=== PATIENT | male | born 1950 ===

== ENCOUNTER 2021-07-17 12:32 | Inpatient (IN) | payer OTHER ==
[2021-07-17 12:51] VITALS: BMI 27.2
[2021-07-17] MEDS ORDERED: ACETAMINOPHEN 1000 MG/100 ML BAG IVPB ONE (12:55)
[2021-07-17] MEDS ORDERED: SODIUM CHLORIDE 0.9% 500 ML INFUS.BAG IV ONE (12:55)
[2021-07-17 15:07] LABS: INR 1.3 (0.83-1.09)
[2021-07-17 15:10] LABS: ACTIVATED PTT 31.5 SECONDS (25.2-36.5)
[2021-07-17 15:10] LABS: EPI CELLS 8 /uL (0-25.1); HYALINE CASTS 5 /uL (0-3.1); URINE APPEARANCE CLEAR; URINE BILIRUBIN 2+ (NEGATIVE); URINE COLOR ORANGE; URINE GLUCOSE (UA) NEGATIVE (NEGATIVE); URINE KETONE NEGATIVE (NEGATIVE); URINE LEUK ESTERASE 2+ (NEGATIVE); URINE NITRITE POSITIVE (NEGATIVE); URINE PROTEIN TRACE (NEGATIVE); URINE RBC 49 /uL (0-23.9); URINE WBC 9 /uL (0-25.8)
[2021-07-17 15:26] LABS: CHLORIDE 103 mmol/L (98-107); LACTIC ACID 7.1 mmol/L (0.4-2.0); SODIUM 138 mmol/L (136-145)
[2021-07-17 15:28] LABS: ALBUMIN 3.5 g/dl (3.4-5.0); ANION GAP 12 MMOL/L (8-16); BLOOD UREA NITROGEN 24.5 mg/dL (7-18); CALCIUM 9.4 mg/dL (8.5-10.1); CO2 23 mmol/L (21-32); GLUCOSE,RANDOM 177 mg/dL (74-106)
[2021-07-17 15:31] LABS: SGPT/ALT 38 U/L (13-61)
[2021-07-17] MEDS ORDERED: CEFTRIAXONE 1,000 MG in DEXTROSE 5%-WATER - 50 ML IVPB ONE (15:31)
[2021-07-17 15:32] LABS: BASO % 0.3 % (0-2.0); CREATININE 1.5 mg/dL (0.55-1.3); HEMATOCRIT 53.9 % (35.4-49); HEMOGLOBIN 16.9 GM/dL (11.7-16.9); MCH 27.5 pg (25.7-33.7); MCHC 31.3 g/dl (32.0-35.9); MEAN CELL VOLUME 87.8 fl (80-96); MEAN PLT VOLUME 10.4 fl (7.5-11.1); MONO % 14.2 % (3.8-10.2); NEUT % 82.5 % (42.8-82.8); PLATELET COUNT 161 10^3/uL (134-434); RBC 6.13 M/mm3 (4.00-5.60); RDW 15.1 % (11.9-15.9); SGOT/AST 29 U/L (15-37); WHITE BLOOD COUNT 12.8 K/mm3 (4.0-10.0)
[2021-07-17 15:33] LABS: BILIRUBIN,TOTAL 1.4 mg/dL (0.2-1); TOT PROT 7.4 g/dl (6.4-8.2)
[2021-07-17 15:34] LABS: ALK PHOS 144 U/L (45-117)
[2021-07-17 15:37] LABS: N-TERMINAL BNP 466.6 pg/ml (5-125)
[2021-07-17 15:43] LABS: VENOUS BASE EXCESS -8.7 mmol/L (-2-2); VENOUS O2 SATURATION 67.1 % (70-80); VENOUS PCO2 56.1 mmHg (38-52)
[2021-07-17 15:45] LABS: VENOUS PH 7.181 (7.310-7.410)
[2021-07-17] MEDS ORDERED: CEFTRIAXONE 1 GM/50 ML BAG ONE (15:45)
[2021-07-17] MEDS ORDERED: HALOPERIDOL LACTATE 5 MG/ML IM ONE (16:37)
[2021-07-17] MEDS ORDERED: HALOPERIDOL LACTATE 5 MG/ML ONE (16:38)
[2021-07-17 17:09] LABS: MAGNESIUM 3.4 mg/dL (1.8-2.4)
[2021-07-17] MEDS ORDERED: ACETAMINOPHEN 1000 MG/100 ML BAG IVPB PRN (17:11)
[2021-07-17] MEDS ORDERED: DEXTROSE 5%-NORMAL SALINE 1,000 ML IV SCH (17:15)
[2021-07-17 17:53] LABS: VENOUS BASE EXCESS -6.1 mmol/L (-2-2); VENOUS O2 SATURATION 65.1 % (70-80); VENOUS PCO2 53.9 mmHg (38-52); VENOUS PH 7.233 (7.310-7.410)
[2021-07-17 18:33] LABS: LACTIC ACID 7.1 mmol/L (0.4-2.0)
[2021-07-17 18:38] LABS: CALCIUM 8.9 mg/dL (8.5-10.1)
[2021-07-17 18:39] LABS: BLOOD UREA NITROGEN 27.2 mg/dL (7-18)
[2021-07-17 18:42] LABS: CREATININE 1.5 mg/dL (0.55-1.3)
[2021-07-17] MEDS ORDERED: PIPERACILLIN/TAZOB 3.375 GM 3.375 GM/50 ML BAG IVPB ONE ×2 (19:14→19:18)
[2021-07-17] MEDS: PIPERACILLIN/TAZOB 3.375 GM 3.375 GM in DEXTROSE 5%-WATER - 50 ML IVPB SCH (19:56)
[2021-07-17] MEDS ORDERED: HEPARIN NA (PORCINE) 5,000 UNITS/ML 1ML VIAL ONE (22:17)
[2021-07-17] MEDS: HEPARIN NA (PORCINE) 5,000 UNITS/ML 1ML VIAL SQ SCH (22:20)
[2021-07-18] MEDS ORDERED: PIPERACILLIN/TAZOB 3.375 GM 3.375 GM/50 ML BAG IVPB ONE (02:34)
[2021-07-18] MEDS: PIPERACILLIN/TAZOB 3.375 GM 3.375 GM in DEXTROSE 5%-WATER - 50 ML IVPB SCH ×2 (02:41→09:22)
[2021-07-18] MEDS ORDERED: PIPERACILLIN/TAZOBACTAM 3.375 GM VIAL IVPB ONE (08:42)
[2021-07-18] MEDS ORDERED: DEXTROSE 5%-WATER - 50 ML IVPB ONE ×2 (08:43→18:36)
[2021-07-18] MEDS: HEPARIN NA (PORCINE) 5,000 UNITS/ML 1ML VIAL SQ SCH (09:22)
[2021-07-18] MEDS ORDERED: ENOXAPARIN NA (PORCINE) 80 MG/0.8 ML DISP.SYRIN SQ SCH (11:30)
[2021-07-18] MEDS: APIXABAN 5 MG TABLET PO SCH ×2 (13:32→22:53)
[2021-07-18] MEDS: DEXTROSE 5%-0.45% SALINE 1,000 ML IV SCH (14:00)
[2021-07-18] MEDS ORDERED: cefTRIAXone SODIUM 1 GM VIAL ONE (18:36)
[2021-07-18] MEDS: CEFTRIAXONE 1 GM in DEXTROSE 5%-WATER - 50 ML IVPB SCH (18:37)
[2021-07-18] MEDS: ATORVASTATIN CA 20 MG TABLET (FP) PO SCH (22:52)
[2021-07-19] MEDS: DEXTROSE 5%-0.45% SALINE 1,000 ML IV SCH ×2 (06:05→14:36)
[2021-07-19 07:51] LABS: BASO % 0.5 % (0-2.0); HEMATOCRIT 41.8 % (35.4-49); HEMOGLOBIN 13.7 GM/dL (11.7-16.9); LYMPH % 11.3 % (8-40); MCH 28.4 pg (25.7-33.7); MCHC 32.7 g/dl (32.0-35.9); MEAN CELL VOLUME 86.7 fl (80-96); MEAN PLT VOLUME 9.8 fl (7.5-11.1); MONO % 12.5 % (3.8-10.2); NEUT % 74.7 % (42.8-82.8); PLATELET COUNT 111 10^3/uL (134-434); RBC 4.82 M/mm3 (4.00-5.60); RDW 14.5 % (11.9-15.9); WHITE BLOOD COUNT 9.9 K/mm3 (4.0-10.0)
[2021-07-19 08:15] LABS: CHOLESTEROL 66 mg/dL (50-200); TRIGLYCERIDES 72 mg/dL (0-150)
[2021-07-19 08:16] LABS: LDL CHOLESTEROL (ONLY SJRH) 36 mg/dL (5-100)
[2021-07-19 08:18] LABS: HDL CHOLESTEROL 27 mg/dL (40-60)
[2021-07-19 08:29] LABS: BLOOD UREA NITROGEN 23.7 mg/dL (7-18); CALCIUM 7.9 mg/dL (8.5-10.1)
[2021-07-19 08:32] LABS: CREATININE 0.7 mg/dL (0.55-1.3)
[2021-07-19 08:34] LABS: BILIRUBIN,TOTAL 0.9 mg/dL (0.2-1)
[2021-07-19 08:36] LABS: ALBUMIN 2.4 g/dl (3.4-5.0); TOT PROT 5.4 g/dl (6.4-8.2)
[2021-07-19] MEDS: CEFTRIAXONE 1 GM in DEXTROSE 5%-WATER - 50 ML IVPB SCH (10:02)
[2021-07-19] MEDS: APIXABAN 5 MG TABLET PO SCH ×2 (10:02→21:37)
[2021-07-19] MEDS ORDERED: DEXTROSE 5%-WATER - 50 ML IVPB ONE (10:55)
[2021-07-19] MEDS ORDERED: cefTRIAXone SODIUM 1 GM VIAL ONE (10:55)
[2021-07-19] MEDS: ATORVASTATIN CA 20 MG TABLET (FP) PO SCH (21:37)
[2021-07-20] MEDS: ALBUTEROL SO4 HFA INHALER IH PRN ×2 (03:18→09:55)
[2021-07-20 08:03] LABS: CALCIUM 7.6 mg/dL (8.5-10.1)
[2021-07-20 08:04] LABS: ALBUMIN 2.5 g/dl (3.4-5.0); BLOOD UREA NITROGEN 13.8 mg/dL (7-18)
[2021-07-20 08:07] LABS: CREATININE 0.6 mg/dL (0.55-1.3)
[2021-07-20 08:08] LABS: BILIRUBIN,TOTAL 1.1 mg/dL (0.2-1); TOT PROT 5.8 g/dl (6.4-8.2)
[2021-07-20 08:15] LABS: BASO % 0.3 % (0-2.0); EOS % 2.6 % (0-4.5); HEMATOCRIT 41.2 % (35.4-49); HEMOGLOBIN 13.4 GM/dL (11.7-16.9); LYMPH % 14.9 % (8-40); MCH 28.1 pg (25.7-33.7); MCHC 32.5 g/dl (32.0-35.9); MEAN CELL VOLUME 86.4 fl (80-96); MEAN PLT VOLUME 10.2 fl (7.5-11.1); MONO % 12.6 % (3.8-10.2); NEUT % 69.6 % (42.8-82.8); PLATELET COUNT 115 10^3/uL (134-434); RBC 4.77 M/mm3 (4.00-5.60); RDW 14.6 % (11.9-15.9); WHITE BLOOD COUNT 7.1 K/mm3 (4.0-10.0)
[2021-07-20] MEDS ORDERED: cefTRIAXone SODIUM 1 GM VIAL ONE (09:44)
[2021-07-20] MEDS ORDERED: DEXTROSE 5%-WATER - 50 ML IVPB ONE (09:44)
[2021-07-20] MEDS: CEFTRIAXONE 1 GM in DEXTROSE 5%-WATER - 50 ML IVPB SCH (09:46)
[2021-07-20] MEDS: metoPROLOL SUCCINATE 25 MG TAB.SR.24H (FP) PO SCH (09:47)
[2021-07-20] MEDS: APIXABAN 5 MG TABLET PO SCH ×2 (09:47→21:35)
[2021-07-20] MEDS: ALBUTEROL SO4 2.5/IPRATROPIUM 0.5 INH SOL 3 ML VIAL.NEB. NEB PRN (21:09)
[2021-07-20] MEDS: ATORVASTATIN CA 20 MG TABLET (FP) PO SCH (21:35)
[2021-07-21] MEDS: ALBUTEROL SO4 2.5/IPRATROPIUM 0.5 INH SOL 3 ML VIAL.NEB. NEB PRN (04:46)
[2021-07-21] MEDS ORDERED: AMINO ACIDS/PROTEIN HYDROLYS 30 ML LIQUID.PKT PO SCH (08:00)
[2021-07-21] MEDS ORDERED: cefTRIAXone SODIUM 1 GM VIAL ONE (08:21)
[2021-07-21] MEDS ORDERED: DEXTROSE 5%-WATER - 50 ML IVPB ONE (08:22)
[2021-07-21] MEDS: APIXABAN 5 MG TABLET PO SCH ×2 (09:32→21:42)
[2021-07-21] MEDS: metoPROLOL SUCCINATE 25 MG TAB.SR.24H (FP) PO SCH (09:32)
[2021-07-21] MEDS: CEFTRIAXONE 1 GM in DEXTROSE 5%-WATER - 50 ML IVPB SCH (09:33)
[2021-07-21] MEDS ORDERED: ASCORBIC ACID 500 MG TABLET (FP) PO SCH (10:00)
[2021-07-21] MEDS ORDERED: MULTIVITAMINS (DAILY MVI) TABLET (FP) PO SCH (10:00)
[2021-07-21] MEDS ORDERED: FUROSEMIDE 20 MG TABLET (FP) PO SCH (11:00)
[2021-07-21] MEDS ORDERED: ALBUTEROL SO4 2.5/IPRATROPIUM 0.5 INH SOL 3 ML VIAL.NEB. NEB PRN (20:42)
[2021-07-21] MEDS ORDERED: ACETAMINOPHEN 1000 MG/100 ML BAG IVPB PRN (20:42)
[2021-07-21] MEDS: ALBUTEROL SO4 HFA INHALER IH PRN (21:41)
[2021-07-21] MEDS: ATORVASTATIN CA 20 MG TABLET (FP) PO SCH (21:42)
[2021-07-22] MEDS: PIPERACILLIN/TAZOB 3.375 GM 3.375 GM in DEXTROSE 5%-WATER - 50 ML IVPB SCH ×2 (07:18→07:19)
[2021-07-22 09:07] LABS: BASO % 0.5 % (0-2.0); EOS % 6.5 % (0-4.5); HEMATOCRIT 40.3 % (35.4-49); HEMOGLOBIN 13.1 GM/dL (11.7-16.9); LYMPH % 20.5 % (8-40); MCH 27.9 pg (25.7-33.7); MCHC 32.5 g/dl (32.0-35.9); MEAN PLT VOLUME 9.7 fl (7.5-11.1); MONO % 19.7 % (3.8-10.2); NEUT % 52.8 % (42.8-82.8); PLATELET COUNT 141 10^3/uL (134-434); RBC 4.69 M/mm3 (4.00-5.60); RDW 14.1 % (11.9-15.9); WHITE BLOOD COUNT 4.1 K/mm3 (4.0-10.0)
[2021-07-22] MEDS ORDERED: cefTRIAXone SODIUM 1 GM VIAL ONE (09:20)
[2021-07-22] MEDS ORDERED: DEXTROSE 5%-WATER - 50 ML IVPB ONE (09:20)
[2021-07-22] MEDS: AMINO ACIDS/PROTEIN HYDROLYS 30 ML LIQUID.PKT PO SCH (09:22)
[2021-07-22] MEDS: CEFTRIAXONE 1 GM in DEXTROSE 5%-WATER - 50 ML IVPB SCH (09:32)
[2021-07-22] MEDS: MULTIVITAMINS (DAILY MVI) TABLET (FP) PO SCH (09:34)
[2021-07-22] MEDS: FUROSEMIDE 20 MG TABLET (FP) PO SCH (09:34)
[2021-07-22] MEDS: APIXABAN 5 MG TABLET PO SCH ×2 (09:34→21:28)
[2021-07-22] MEDS: metoPROLOL SUCCINATE 25 MG TAB.SR.24H (FP) PO SCH (09:34)
[2021-07-22] MEDS: ASCORBIC ACID 500 MG TABLET (FP) PO SCH (09:34)
[2021-07-22] MEDS ORDERED: POTASSIUM CHLORIDE ORAL LIQUID 20 MEQ/15 ML PO ONE (10:00)
[2021-07-22 10:09] LABS: ALBUMIN 2.5 g/dl (3.4-5.0); CALCIUM 8.1 mg/dL (8.5-10.1)
[2021-07-22 10:10] LABS: BLOOD UREA NITROGEN 10.6 mg/dL (7-18)
[2021-07-22 10:12] LABS: CREATININE 0.6 mg/dL (0.55-1.3)
[2021-07-22 10:14] LABS: BILIRUBIN,TOTAL 0.8 mg/dL (0.2-1); TOT PROT 5.4 g/dl (6.4-8.2)
[2021-07-22] MEDS: ALBUTEROL SO4 HFA INHALER IH PRN (10:52)
[2021-07-22] MEDS: BUDESONIDE/FORMETEROL FUMARATE 160/4.5 mcg INHALER IH SCH ×2 (12:34→21:28)
[2021-07-22] MEDS: ATORVASTATIN CA 20 MG TABLET (FP) PO SCH (21:28)
[2021-07-23] MEDS: AMINO ACIDS/PROTEIN HYDROLYS 30 ML LIQUID.PKT PO SCH (08:24)
[2021-07-23] MEDS ORDERED: cefTRIAXone SODIUM 1 GM VIAL ONE (09:10)
[2021-07-23] MEDS ORDERED: DEXTROSE 5%-WATER - 50 ML IVPB ONE (09:11)
[2021-07-23] MEDS: FUROSEMIDE 20 MG TABLET (FP) PO SCH (09:49)
[2021-07-23] MEDS: CEFTRIAXONE 1 GM in DEXTROSE 5%-WATER - 50 ML IVPB SCH (09:49)
[2021-07-23] MEDS: metoPROLOL SUCCINATE 25 MG TAB.SR.24H (FP) PO SCH (09:49)
[2021-07-23] MEDS: MULTIVITAMINS (DAILY MVI) TABLET (FP) PO SCH (09:49)
[2021-07-23] MEDS: BUDESONIDE/FORMETEROL FUMARATE 160/4.5 mcg INHALER IH SCH ×2 (09:49→21:22)
[2021-07-23] MEDS: ASCORBIC ACID 500 MG TABLET (FP) PO SCH (09:49)
[2021-07-23] MEDS: APIXABAN 5 MG TABLET PO SCH ×2 (09:49→21:22)
[2021-07-23] MEDS: methylPREDNISolone NA SUCC 40 MG/1 ML VIAL IVPUSH SCH ×2 (13:46→18:48)
[2021-07-23] MEDS ORDERED: ACETAMINOPHEN 500 MG TABLET (FP) PO PRN (16:24)
[2021-07-23] MEDS: ATORVASTATIN CA 20 MG TABLET (FP) PO SCH (21:22)
[2021-07-24] MEDS: methylPREDNISolone NA SUCC 40 MG/1 ML VIAL IVPUSH SCH ×3 (01:18→17:39)
[2021-07-24] MEDS ORDERED: cefTRIAXone SODIUM 1 GM VIAL ONE (10:23)
[2021-07-24] MEDS ORDERED: DEXTROSE 5%-WATER - 50 ML IVPB ONE (10:23)
[2021-07-24] MEDS: CEFTRIAXONE 1 GM in DEXTROSE 5%-WATER - 50 ML IVPB SCH (10:29)
[2021-07-24] MEDS: BUDESONIDE/FORMETEROL FUMARATE 160/4.5 mcg INHALER IH SCH ×2 (10:30→21:00)
[2021-07-24] MEDS: AMINO ACIDS/PROTEIN HYDROLYS 30 ML LIQUID.PKT PO SCH (10:30)
[2021-07-24] MEDS: FUROSEMIDE 20 MG TABLET (FP) PO SCH (10:30)
[2021-07-24] MEDS: ASCORBIC ACID 500 MG TABLET (FP) PO SCH (10:30)
[2021-07-24] MEDS: APIXABAN 5 MG TABLET PO SCH ×2 (10:30→21:00)
[2021-07-24] MEDS: MULTIVITAMINS (DAILY MVI) TABLET (FP) PO SCH (10:30)
[2021-07-24] MEDS: metoPROLOL SUCCINATE 25 MG TAB.SR.24H (FP) PO SCH (10:33)
[2021-07-24 14:20] VITALS: BP 104/65
[2021-07-24] MEDS: ATORVASTATIN CA 20 MG TABLET (FP) PO SCH (21:00)
[2021-07-25 01:10] VITALS: PULSE 115; TEMP 97.9
== END 2021-07-24 21:00 | DRG 689 ==
LOC: JER 12:32 → JERBED 15:29 → J4W 07-18 06:48 → J6S 07-21 19:13
PROVIDERS: ADMIT Internal Medicine; ATTEND Internal Medicine
DX: N39.0 Urinary tract infection, site not specified (principal); R53.2 Functional quadriplegia; E87.2 Acidosis; N17.9 Acute kidney failure, unspecified; I69.354 Hemiplegia and hemiparesis following cerebral infarction affecting left non-dominant side; B96.20 Unspecified Escherichia coli [E. coli] as the cause of diseases classified elsewhere; B96.4 Proteus (mirabilis) (morganii) as the cause of diseases classified elsewhere; I25.10 Atherosclerotic heart disease of native coronary artery without angina pectoris; J44.9 Chronic obstructive pulmonary disease, unspecified; E78.5 Hyperlipidemia, unspecified; I10 Essential (primary) hypertension; K52.9 Noninfective gastroenteritis and colitis, unspecified; I48.91 Unspecified atrial fibrillation; D72.829 Elevated white blood cell count, unspecified; R50.9 Fever, unspecified
CPT/HCPCS: 36415; 70450-TC; 71045-TC-FY; 74174-TC; 80048; 80053; 80061; 81003; 82272; 82550; 82553; 82803; 82962; 83605; 83735; 83880; 84443; 84484; 85025; 85610; 85730; 86850; 86900; 86901; 86902; 87040; 87045; 87046; 87086; 87186; 87324; 87449; 93005; 93010; 93306-TC; 93971-TC; 94640; 99291; C9803-CS; J1644; Q9967; U0003; U0005